=== PATIENT | male | born 1990 | race Caucasian/White ===

== ENCOUNTER 2018-01-02 17:49 | Emergency (ER) | payer BC, MEDICAID, OTHER ==
--- NOTE | 2018-01-02 19:55 | EDM.PDOCBH ---
ED HPI GENERAL MEDICAL PROBLEM - General Chief Complaint: Behavioral/Psych Stated Complaint: EVAL Time Seen by Provider: 01/02/18 18:15 Source of Information: Reports: Patient, Family History Limitations: Reports: Altered Mental Status - History of Present Illness INITIAL COMMENTS - FREE TEXT/NARRATIVE: 27-year-old male with a known history of paranoid schizophrenia, and bipolar disorder has been off his medications for the last 2 weeks at least. His mother called the police to bring him in, she is concerned for his safety as he has become more paranoid, delusional, and not thinking rationally. 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 He also thinks everybody is infected with AIDS and he is being watched. His history is not reliable from the patient , he told me he's been taking his medicines for the last 2 days but told the nurse he was not, and opened up a pill and dumped it out because it was just "dust" in front of his mom yesterday. He has a cat that he is not taking care of. He obviously needs stabilization. He also mentioned 2 days ago that he thought he was , having an afterlife experience or out of body experience. Onset: Unknown/Unsure Severity: Moderate Associated Symptoms: Reports: No Other Symptoms denies Pain Score (Numeric/FACES): 0 - Related Data Allergies Allergy/AdvReac Type Severity Reaction Status Date / Time No Known Allergies Allergy Verified 01/02/18 18:15 Home Meds: Home Meds Sertraline [Zoloft] 100 mg PO DAILY 01/02/18 [History] Ziprasidone HCl 60 mg PO DAILY 01/02/18 [History] risperiDONE 0.5 mg PO ASDIRECTED PRN 01/02/18 [History] Past Medical History Cardiovascular History: Reports: Arrhythmia Musculoskeletal History: Reports: Fracture Psychiatric History: Reports: ADHD, Anxiety, Bipolar, Panic Attack, Psych Hospitalization(s), Psychosis, Other (See Below) Other Psychiatric History: schizoaffective, - Infectious Disease History Infectious Disease History: Reports: Chicken Pox - Past Surgical History Musculoskeletal Surgical History: Reports: Other (See Below) Other Musculoskeletal Surgeries/Procedures:: right wrist Social & Family History - Tobacco Use Smoking Status *Q: Never Smoker - Caffeine Use Caffeine Use: Reports: Soda - Alcohol Use Days Per Week of Alcohol Use: 1 Number of Drinks Per Day: 5 Total Drinks Per Week: 5 Date of Last Drink: 12/19/17 - Recreational Drug Use Recreational Drug Use: No ED ROS GENERAL - Review of Systems Review Of Systems: Unable To Obtain (Patient denies any symptoms, says everything is fine) ED EXAM, BEHAVIORAL HEALTH - Physical Exam Exam: See Below Exam Limited By: No Limitations General Appearance: Alert, No Apparent Distress Eye Exam: Bilateral Eye: Normal Inspection Head: Atraumatic Respiratory/Chest: No Respiratory Distress, Lungs Clear Cardiovascular: Regular Rate, Rhythm Extremities: Normal Inspection (No acute trauma or self injury seen) Neurological: Alert, Oriented x 3 Psychiatric: Normal Affect Skin Exam: Warm, Dry COURSE, BEHAVIORAL HEALTH COMP - Course Vital Signs: Last Vital Signs Temp 98.2 F 01/02/18 22:57 Pulse 80 01/02/18 22:57 Resp 16 01/02/18 22:57 BP 114/74 01/02/18 22:57 Pulse Ox 98 01/02/18 22:57 Orders, Labs, Meds: Active Orders 24 hr Category Date Time Status DRUG SCREEN, URINE [URCHEM] Stat Lab 01/02/18 18:44 Ordered UA W/O MICROSCOPIC [URIN] Stat Lab 01/02/18 18:44 Ordered Laboratory Tests 01/02/18 01/02/18 01/02/18 Range/Units 18:44 18:44 18:54 WBC 4.5 (4.5-11.0) K/uL RBC 4.58 (4.30-5.90) M/uL Hgb 14.8 (12.0-15.0) g/dL Hct 40.6 (40.0-54.0) % MCV 89 (80-98) fL MCH 32 H (27-31) pg MCHC 37 H (32-36) % Plt Count 294 (150-400) K/uL Neut % (Auto) 56 (36-66) % Lymph % (Auto) 30 (24-44) % [place] % (Auto) 10 H (2-6) % Eos % (Auto) 3 (2-4) % Baso % (Auto) 0 (0-1) % Sodium (140-148) mmol/L Potassium (3.6-5.2) mmol/L Chloride (100-108) mmol/L Carbon Dioxide (21-32) mmol/L Anion Gap (5.0-14.0) mmol/L BUN (7-18) mg/dL Creatinine (0.8-1.3) mg/dL Est Cr Clr Drug Dosing mL/min Estimated GFR (MDRD) (>60) Glucose (74-106) mg/dL Calcium (8.5-10.1) mg/dL TSH, Ultra Sensitive (0.358-3.740) uIU/mL Urine Color Yellow Urine Appearance Clear Urine pH 5.0 (4.5-8.0) Ur Specific [place] 1.025 (1.008-1.030) Urine Protein Negative (NEGATIVE) mg/dL Urine Glucose (UA) Normal (NEGATIVE) mg/dL Urine Ketones Negative (NEGATIVE) mg/dL Urine Occult Blood Negative (NEGATIVE) Urine Nitrite Negative (NEGAITVE) Urine Bilirubin Small (NEGATIVE) Urine Urobilinogen 1 (NORMAL) mg/dL Ur Leukocyte Esterase Negative (NEGATIVE) Urine Opiates Screen Negative (NEGATIVE) Ur Oxycodone Screen Negative (NEGATIVE) Urine Methadone Screen Negative (NEGATIVE) Ur Propoxyphene Screen Negative (NEGATIVE) Ur Barbiturates Screen Negative (NEGATIVE) Ur Tricyclics Screen Negative (NEGATIVE) Ur Phencyclidine Scrn Negative (NEGATIVE) Ur Amphetamine Screen Negative (NEGATIVE) U Methamphetamines Scrn Negative (NEGATIVE) Urine MDMA Screen Negative (NEGATIVE) U Benzodiazepines Scrn Negative (NEGATIVE) U Cocaine Metab Screen Negative (NEGATIVE) U Marijuana (THC) Screen Negative (NEGATIVE) Ethyl Alcohol mg/dL 01/02/18 01/02/18 Range/Units 18:54 18:54 WBC (4.5-11.0) K/uL RBC (4.30-5.90) M/uL Hgb (12.0-15.0) g/dL Hct (40.0-54.0) % MCV (80-98) fL MCH (27-31) pg MCHC (32-36) % Plt Count (150-400) K/uL Neut % (Auto) (36-66) % Lymph % (Auto) (24-44) % [place] % (Auto) (2-6) % Eos % (Auto) (2-4) % Baso % (Auto) (0-1) % Sodium 142 (140-148) mmol/L Potassium 3.7 (3.6-5.2) mmol/L Chloride 105 (100-108) mmol/L Carbon Dioxide 24 (21-32) mmol/L Anion Gap 12.7 (5.0-14.0) mmol/L BUN 8 (7-18) mg/dL Creatinine 0.9 (0.8-1.3) mg/dL Est Cr Clr Drug Dosing 133.63 mL/min Estimated GFR (MDRD) > 60 (>60) Glucose 131 H (74-106) mg/dL Calcium 8.3 L (8.5-10.1) mg/dL TSH, Ultra Sensitive 1.618 (0.358-3.740) uIU/mL Urine Color Urine Appearance Urine pH (4.5-8.0) Ur Specific [place] (1.008-1.030) Urine Protein (NEGATIVE) mg/dL Urine Glucose (UA) (NEGATIVE) mg/dL Urine Ketones (NEGATIVE) mg/dL Urine Occult Blood (NEGATIVE) Urine Nitrite (NEGAITVE) Urine Bilirubin (NEGATIVE) Urine Urobilinogen (NORMAL) mg/dL Ur Leukocyte Esterase (NEGATIVE) Urine Opiates Screen (NEGATIVE) Ur Oxycodone Screen (NEGATIVE) Urine Methadone Screen (NEGATIVE) Ur Propoxyphene Screen (NEGATIVE) Ur Barbiturates Screen (NEGATIVE) Ur Tricyclics Screen (NEGATIVE) Ur Phencyclidine Scrn (NEGATIVE) Ur Amphetamine Screen (NEGATIVE) U Methamphetamines Scrn (NEGATIVE) Urine MDMA Screen (NEGATIVE) U Benzodiazepines Scrn (NEGATIVE) U Cocaine Metab Screen (NEGATIVE) U Marijuana (THC) Screen (NEGATIVE) Ethyl Alcohol < 3 mg/dL Re-Assessment/Re-Exam: CBC, CMP, TSH and urine drug screen along with EtOH was obtained. We'll try very hard to get this patient stabilized at an inpatient facility. All of the patient's labs are very reassuring, drug screen was negative, alcohol was 0. [facility] the patient but initially he was unwilling to go. They needed his cooperation in order to be admitted. I explained to the patient that if he did not go to [facility], he would be placed on a 72 hour hold and have to go somewhere, so he agreed to go. Departure - Departure Time of Disposition: 22:59 Disposition: DC/Tfer to Other 70 Condition: Fair Clinical Impression: Bipolar disorder Schizophrenia Qualifiers: Schizophrenia type: paranoid schizophrenia Qualified Code(s): F20.0 - Paranoid schizophrenia - Discharge Information Instructions: Schizophrenia Referrals: PCP,None [Primary Care Provider] - Forms: ED Department Discharge Care Plan Goals: Patient will be transferred to the [facility] unit in [facility] for inpatient assessment and treatment. - My Orders Last 24 Hours: My Active Orders 01/02/18 18:44 DRUG SCREEN, URINE [URCHEM] Stat UA W/O MICROSCOPIC [URIN] Stat - Assessment/Plan Last 24 Hours: My Active Orders 01/02/18 18:44 DRUG SCREEN, URINE [URCHEM] Stat UA W/O MICROSCOPIC [URIN] Stat
[2018-01-02 22:59] VITALS: BP 114/74
== END 2018-01-02 22:59 | disposition other institution (70) ==
LOC: JP.ED 17:49
DX: F31.9 Bipolar disorder, unspecified (principal); F20.0 Paranoid schizophrenia; F90.9 Attention-deficit hyperactivity disorder, unspecified type; Z79.899 Other long term (current) drug therapy
CPT/HCPCS: 36415; 80048; 80305; 81003; 84443; 85025; 99285; G0480

== ENCOUNTER 2018-01-13 13:09 | Emergency (ER) | payer MEDICAID ==
[2018-01-13 13:45] VITALS: BP 135/65
[2018-01-13] MEDS ORDERED: LORazepam 0.5 MG Tab PO ONE ×2 (13:59→16:27)
--- NOTE | 2018-01-13 14:05 | EDM.PDOCBH ---
ED HPI GENERAL MEDICAL PROBLEM - General Chief Complaint: Behavioral/Psych Stated Complaint: EVAL Time Seen by Provider: 01/13/18 14:00 Source of Information: Reports: Patient, Family History Limitations: Reports: No Limitations - History of Present Illness INITIAL COMMENTS - FREE TEXT/NARRATIVE: pt arrived with a feeling of hopelessness. He thinks alot about not waking up. He does not have a suicidal plan. He was seen in [place] yesterday and he had acceptance at [facility] in [place] but he left before a ride could be arranged. He is here today and he realizes he needs to go for in patient. He was recently at [facility] in [place] and he only stayed 2 days and requested to leave. He recently moved into a apartment by himself but has not done well since that time. He emded up quiting his meds. He has been back on his meds since he was in [facility]. Onset: Gradual Duration: Day(s): Associated Symptoms: Reports: Other ( increased depression) denies Pain Score (Numeric/FACES): 0 - Related Data Allergies Allergy/AdvReac Type Severity Reaction Status Date / Time No Known Allergies Allergy Verified 01/02/18 18:15 Home Meds: Home Meds Sertraline [Zoloft] 100 mg PO DAILY 01/02/18 [History] Ziprasidone HCl 60 mg PO DAILY 01/02/18 [History] Past Medical History Cardiovascular History: Reports: Arrhythmia Musculoskeletal History: Reports: Fracture Psychiatric History: Reports: ADHD, Anxiety, Bipolar, Panic Attack, Psych Hospitalization(s), Psychosis, Other (See Below) Other Psychiatric History: schizoaffective, Endocrine/Metabolic History: Reports: Obesity/BMI 30+ - Infectious Disease History Infectious Disease History: Reports: Chicken Pox - Past Surgical History Musculoskeletal Surgical History: Reports: Other (See Below) Other Musculoskeletal Surgeries/Procedures:: right wrist Social & Family History - Tobacco Use Smoking Status *Q: Current Some Day Smoker Years of Tobacco use: 5 Packs/Tins Daily: 0 Used Tobacco, but Quit: No Second Hand Smoke Exposure: Yes - Caffeine Use Caffeine Use: Reports: Soda - Alcohol Use Days Per Week of Alcohol Use: 1 Number of Drinks Per Day: 5 Total Drinks Per Week: 5 - Recreational Drug Use Recreational Drug Use: No ED ROS GENERAL - Review of Systems Review Of Systems: See Below Constitutional: Reports: No Symptoms HEENT: Reports: No Symptoms Respiratory: Reports: No Symptoms Cardiovascular: Reports: No Symptoms Endocrine: Reports: No Symptoms GI/Abdominal: Reports: No Symptoms : Reports: No Symptoms Musculoskeletal: Reports: No Symptoms Neurological: Reports: No Symptoms Psychiatric: Reports: Anxiety, Depression, Other (hopelessness and just not funtioning. ) ED EXAM, BEHAVIORAL HEALTH - Physical Exam Exam: See Below Text/Narrative:: pt is feeling anxious and he knows he needs help. Exam Limited By: No Limitations General Appearance: Alert, No Apparent Distress, Other (pupils are large but do react) Ears: Normal TMs Nose: Normal Inspection Throat/Mouth: Normal Inspection Head: Atraumatic Neck: Normal Inspection Respiratory/Chest: No Respiratory Distress Cardiovascular: Regular Rate, Rhythm GI/Abdominal: Soft, Non-Tender (Male) Exam: Deferred Rectal (Males) Exam: Deferred Back Exam: Normal Inspection Extremities: Normal Inspection COURSE, BEHAVIORAL HEALTH COMP - Course Vital Signs: Last Vital Signs Temp 36.8 C 01/13/18 13:37 Pulse 93 01/13/18 13:37 Resp 18 01/13/18 13:37 BP 135/65 01/13/18 13:37 Pulse Ox 93 L 01/13/18 13:37 Orders, Labs, Meds: Laboratory Tests 01/13/18 01/13/18 01/13/18 Range/Units 13:52 14:05 14:05 Urine Color [place] Urine Appearance Clear Urine pH 6.0 (4.5-8.0) Ur Specific [place] 1.015 (1.008-1.030) Urine Protein Negative (NEGATIVE) mg/dL Urine Glucose (UA) Normal (NEGATIVE) mg/dL Urine Ketones 15 H (NEGATIVE) mg/dL Urine Occult Blood Negative (NEGATIVE) Urine Nitrite Negative (NEGAITVE) Urine Bilirubin Small (NEGATIVE) Urine Urobilinogen 4 (NORMAL) mg/dL Ur Leukocyte Esterase Negative (NEGATIVE) Urine RBC 0-5 (0-5) Urine WBC 0-5 (0-5) Ur Epithelial Cells Not seen Amorphous Sediment Rare Urine Bacteria Not seen Urine Mucus Not seen Urine Opiates Screen Negative (NEGATIVE) Ur Oxycodone Screen Negative (NEGATIVE) Urine Methadone Screen Negative (NEGATIVE) Ur Propoxyphene Screen Negative (NEGATIVE) Ur Barbiturates Screen Negative (NEGATIVE) Ur Tricyclics Screen Negative (NEGATIVE) Ur Phencyclidine Scrn Negative (NEGATIVE) Ur Amphetamine Screen Negative (NEGATIVE) U Methamphetamines Scrn Negative (NEGATIVE) Urine MDMA Screen Negative (NEGATIVE) U Benzodiazepines Scrn Negative (NEGATIVE) U Cocaine Metab Screen Negative (NEGATIVE) U Marijuana (THC) Screen Negative (NEGATIVE) Ethyl Alcohol < 3 mg/dL Medications Discontinued Medications Generic Name Dose Route Start Last Admin Trade Name Freq PRN Reason Stop Dose Admin Lorazepam 0.5 mg 01/13/18 13:59 01/13/18 14:07 Ativan PO 01/13/18 14:00 0.5 mg ONETIME ONE Administration Lorazepam 0.5 mg 01/13/18 16:27 01/13/18 16:44 Ativan PO 01/13/18 16:28 0.5 mg ONETIME ONE Administration Medical Clearance: 01/13/18 15:08 When records cme from [place]. acceptence had not been obtained for the pt. The pt definitely has increased hallucinations and he has a feeling that he does not want to wake up. At this point he is not able to funtion and some inpatient stabilization woulfd be ideal. 01/13/18 15:55 URINE UDS WAS NEG. hIS ETOH WAS NEG. 01/13/18 16:27 pT WAS ACCEPTED AT [facility] Departure - Departure Time of Disposition: 19:05 Disposition: DC/Tfer to Psych Hosp/Unit 65 Condition: Fair Clinical Impression: Depression (emotion), Anxiety - Discharge Information Referrals: PCP,None [Primary Care Provider] - Forms: ED Department Discharge Care Plan Goals: TRANSFER TO [facility]
== END 2018-01-13 19:02 ==
LOC: JP.ED 13:09
DX: F41.8 Other specified anxiety disorders (principal); F32.9 Major depressive disorder, single episode, unspecified; F17.210 Nicotine dependence, cigarettes, uncomplicated; Z79.899 Other long term (current) drug therapy
CPT/HCPCS: 36415; 80305; 81001; 99285; A9270; G0480

== ENCOUNTER 2022-03-09 08:15 | Inpatient (IN) | payer MEDICAID, MEDICARE ==
[2022-03-23] MEDS ORDERED: Scopolamine 1.5 MG Transdermal Patch TOP ONE (05:57)
[2022-03-23] MEDS ORDERED: Acetaminophen 500 MG Tab PO ONE (05:57)
[2022-03-23] MEDS ORDERED: Dextrose 5%-Lactated Ringers 1,000 ML IV SCH (06:00)
[2022-03-23 06:39] LABS: HEMOGLOBIN A1C 6.2 % (4.5-6.2)
[2022-03-23] MEDS ORDERED: Celecoxib 200 MG Cap PO ONE (06:40)
[2022-03-23] MEDS ORDERED: cefOXitin 2 GM Vial ONE (06:50)
[2022-03-23 06:55] LABS: ESTIMATED GFR 104 mL/min (>60)
[2022-03-23] MEDS ORDERED: fentaNYL 250 MCG/5 ML SDV ONE ×2 (06:57→08:29)
[2022-03-23] MEDS ORDERED: Succinylcholine 200 MG/10 ML MDV ONE (06:58)
[2022-03-23] MEDS ORDERED: Neostigmine Methylsulfate 1 MG/ML 5 ML Syringe ONE (06:58)
[2022-03-23] MEDS ORDERED: Rocuronium 50 MG/5 ML Vial ONE ×2 (06:58→07:50)
[2022-03-23] MEDS ORDERED: Dexamethasone 4 MG/ML SDV ONE (06:58)
[2022-03-23] MEDS ORDERED: Propofol 200 MG/20 ML SDV ONE (06:58)
[2022-03-23] MEDS ORDERED: Glycopyrrolate 0.2 MG/ML 5 ML MDV ONE (06:58)
[2022-03-23] MEDS ORDERED: Ondansetron 4 MG/2 ML SDV ONE (06:58)
[2022-03-23] MEDS ORDERED: cefOXitin 2 GM in Sodium Chloride 0.9% 100 ML IV ONE (07:00)
[2022-03-23] MEDS ORDERED: Lactated Ringers 1,000 ML ONE (07:02)
[2022-03-23] MEDS ORDERED: cefOXitin 2 GM in Sodium Chloride 0.9% 50 ML IV ONE (07:30)
[2022-03-23] MEDS ORDERED: Ketamine 22 MG in Sodium Chloride 0.9% 19.78 ML IV SCH (07:30)
[2022-03-23] MEDS ORDERED: Ketamine 500 MG/5 ML MDV IV SCH (07:30)
[2022-03-23] MEDS ORDERED: Pantoprazole 40 MG Vial IVPUSH SCH ×3 (10:45→14:00)
[2022-03-23] MEDS ORDERED: traMADol 50 MG Tab PO PRN (11:00)
[2022-03-23] MEDS ORDERED: Labetalol 20 MG/4 ML Syringe IVPUSH PRN (11:00)
[2022-03-23] MEDS ORDERED: Ondansetron 4 MG/2 ML SDV IVPUSH PRN (11:00)
[2022-03-23] MEDS ORDERED: diphenhydrAMINE 50 MG/ML SDV IVPUSH PRN (11:00)
[2022-03-23] MEDS ORDERED: HYDROmorphone 0.5 MG/0.5 ML Syringe IVPUSH PRN (11:00)
[2022-03-23] MEDS ORDERED: HYDROmorphone 1 MG/ML Syringe IV PRN (11:00)
[2022-03-23] MEDS ORDERED: Metoclopramide 10 MG/2 ML SDV IVPUSH PRN (11:00)
[2022-03-23] MEDS ORDERED: Acetaminophen 500 MG Tab PO PRN (11:00)
[2022-03-23] MEDS ORDERED: hydrOXYzine HCL 100 MG/2 ML SDV IM PRN (11:00)
[2022-03-23] MEDS: Cyclobenzaprine 10 MG Tab PO PRN ×2 (11:10→20:57)
[2022-03-23] MEDS: cefOXitin 2 GM in Sodium Chloride 0.9% 50 ML IV SCH ×2 (13:18→19:58)
[2022-03-23] MEDS: Dextrose 5%-Lactated Ringers 1,000 ML IV SCH ×2 (13:18→23:04)
[2022-03-23] MEDS: Acetaminophen 500 MG Tab PO SCH ×2 (13:22→21:00)
[2022-03-23] MEDS ORDERED: MVI, Adult with Vitamin K 10 ML, Thiamine 200 MG, Zinc/Copper/Manganese/Selenium 1 ML i... IV SCH ×4 (16:00)
[2022-03-23] MEDS: Heparin Sodium 5,000 Units/ML Vial SUBCUT SCH (16:39)
[2022-03-23] MEDS: oxyCODONE 5 MG Tab PO PRN (16:43)
[2022-03-23] MEDS: Prazosin 1 MG Cap PO SCH (20:00)
[2022-03-23] MEDS: SUVOREXANT 10 MG PO SCH (20:00)
[2022-03-24] MEDS: oxyCODONE 5 MG Tab PO PRN ×3 (00:28→21:00)
[2022-03-24] MEDS: Heparin Sodium 5,000 Units/ML Vial SUBCUT SCH ×4 (00:28→23:23)
[2022-03-24] MEDS ORDERED: Iopamidol 612 MG/ML 50 ML SDV PO STA (01:59)
[2022-03-24] MEDS: cefOXitin 2 GM in Sodium Chloride 0.9% 50 ML IV SCH ×3 (02:38→13:56)
[2022-03-24] MEDS: Dextrose 5%-Lactated Ringers 1,000 ML IV SCH ×2 (05:54→12:56)
[2022-03-24] MEDS: Acetaminophen 500 MG Tab PO SCH ×3 (06:29→21:01)
[2022-03-24] MEDS ORDERED: Celecoxib 200 MG Cap PO ONE ×2 (06:30)
[2022-03-24] MEDS: ClonazePAM 1 MG Tab PO SCH (09:12)
[2022-03-24] MEDS: Celecoxib 200 MG Cap PO SCH ×2 (09:12→20:46)
[2022-03-24] MEDS: SCOPOLAMINE PATCH CHECK TOP SCH (09:13)
[2022-03-24] MEDS ORDERED: MVI, Adult with Vitamin K 10 ML, Thiamine 200 MG, Zinc/Copper/Manganese/Selenium 1 ML i... IV SCH ×4 (16:00)
[2022-03-24] MEDS ORDERED: Pantoprazole 40 MG Delayed-Release Granules 1 Packet PO SCH (16:30)
[2022-03-24] MEDS: Prazosin 1 MG Cap PO SCH (20:46)
[2022-03-24] MEDS: SUVOREXANT 10 MG PO SCH (20:49)
[2022-03-25] MEDS: Dextrose 5%-Lactated Ringers 1,000 ML IV SCH (01:59)
[2022-03-25] MEDS: Acetaminophen 500 MG Tab PO SCH (05:55)
[2022-03-25 06:56] VITALS: BP 136/90; PULSE 99
[2022-03-25] MEDS: Heparin Sodium 5,000 Units/ML Vial SUBCUT SCH (07:01)
[2022-03-25] MEDS: oxyCODONE 5 MG Tab PO PRN (07:01)
[2022-03-25] MEDS ORDERED: Cyanocobalamin (Vitamin B12) 1,000 MCG/ML SDV IM ONE (09:00)
[2022-03-25] MEDS: ClonazePAM 1 MG Tab PO SCH (09:01)
[2022-03-25] MEDS: Celecoxib 200 MG Cap PO SCH (09:01)
[2022-03-25] MEDS: SCOPOLAMINE PATCH CHECK TOP SCH (09:02)
== END 2022-03-25 10:13 | disposition home or self-care (01) | DRG 621 ==
LOC: EDSTATUS 08:15 → JP.SDS 03-23 05:29 → JP.MS 03-23 10:00
PROVIDERS: ADMIT Surgery; ATTEND Surgery
PROC: 0D164ZA Bypass Stomach to Jejunum, Percutaneous Endoscopic Approach (ICD-10-PCS; principal; 2022-03-23)
PROC: 0FB24ZX Excision of Left Lobe Liver, Percutaneous Endoscopic Approach, Diagnostic (ICD-10-PCS; 2022-03-23)
PROC: 0BQT4ZZ Repair Diaphragm, Percutaneous Endoscopic Approach (ICD-10-PCS; 2022-03-23)
PROC: 0DB84ZZ Excision of Small Intestine, Percutaneous Endoscopic Approach (ICD-10-PCS; 2022-03-23)
DX: E66.01 Morbid (severe) obesity due to excess calories (principal); F98.8 Other specified behavioral and emotional disorders with onset usually occurring in childhood and adolescence; F32.9 Major depressive disorder, single episode, unspecified; G47.33 Obstructive sleep apnea (adult) (pediatric); Z68.44 Body mass index [BMI] 60.0-69.9, adult
CPT/HCPCS: 36415; 74240; 74240-26; 80053; 83036; 83735; 83880; 84100; 85027; 86850; 86900; 86901; 88307; 88313; A9270-GY; C9113; J0171; J0330; J0694; J1100; J1644; J2405; J2704; J2710; J2795; J3010; J3410; J3411; J3420; J3490; J7120; J7121; Q9967

== ENCOUNTER 2022-04-23 05:23 | Day surgery (SDC) | payer MEDICARE ==
[2022-04-23] MEDS ORDERED: Acetaminophen 500 MG Tab PO ONE (05:30)
[2022-04-23] MEDS ORDERED: Dextrose 5%-Lactated Ringers 1,000 ML IV SCH (06:00)
[2022-04-23] MEDS ORDERED: Meropenem 500 MG in Sodium Chloride 0.9% 50 ML IV ONE ×2 (06:30→07:30)
[2022-04-23] MEDS ORDERED: Bupivacaine 0.5%/EPINEPHrine 1:200,000 50 ML MDV ONE (06:43)
[2022-04-23] MEDS ORDERED: fentaNYL 250 MCG/5 ML SDV ONE (07:18)
[2022-04-23] MEDS ORDERED: Neostigmine Methylsulfate 1 MG/ML 5 ML Syringe ONE (07:19)
[2022-04-23] MEDS ORDERED: Propofol 200 MG/20 ML SDV ONE (07:19)
[2022-04-23] MEDS ORDERED: Rocuronium 50 MG/5 ML Vial ONE (07:19)
[2022-04-23] MEDS ORDERED: Glycopyrrolate 0.2 MG/ML 5 ML MDV ONE (07:19)
[2022-04-23] MEDS ORDERED: Succinylcholine 200 MG/10 ML MDV ONE (07:19)
[2022-04-23] MEDS ORDERED: Ondansetron 4 MG/2 ML SDV ONE (07:19)
[2022-04-23] MEDS ORDERED: Dexamethasone 4 MG/ML SDV ONE (07:19)
[2022-04-23] MEDS ORDERED: Lactated Ringers 1,000 ML IV ONE (07:30)
[2022-04-23] MEDS ORDERED: Cyanocobalamin (Vitamin B12) 1,000 MCG/ML SDV IM ONE (07:30)
[2022-04-23] MEDS ORDERED: Hydrogen Peroxide 3% Top Soln 240 ML Bottle ONE (07:38)
[2022-04-23] MEDS ORDERED: MVI, Adult with Vitamin K 10 ML, Thiamine 200 MG, Zinc/Copper/Manganese/Selenium 1 ML i... IV ONE ×4 (08:30)
[2022-04-23] MEDS ORDERED: Paliperidone 3 MG Tab.ER PO ONE (09:00)
[2022-04-23] MEDS ORDERED: oxyCODONE 5 MG Tab PO PRN (09:21)
[2022-04-23 10:19] VITALS: PULSE 85
[2022-04-23 10:51] VITALS: BP 108/71
== END 2022-04-23 11:00 | disposition home or self-care (01) ==
LOC: JP.SDS 05:23
PROVIDERS: ATTEND Surgery
DX: K60.3 Anal fistula (principal); F33.42 Major depressive disorder, recurrent, in full remission; F90.2 Attention-deficit hyperactivity disorder, combined type; F20.0 Paranoid schizophrenia; E66.01 Morbid (severe) obesity due to excess calories; G47.33 Obstructive sleep apnea (adult) (pediatric); Z68.42 Body mass index [BMI] 45.0-49.9, adult; Z79.83 Long term (current) use of bisphosphonates; Z79.899 Other long term (current) drug therapy; Z91.048 Other nonmedicinal substance allergy status
CPT/HCPCS: 46280; A9270; J0330; J1100; J2185; J2405; J2704; J2710; J3010; J3411; J3420; J3490; J7120

== ENCOUNTER 2024-08-09 17:42 | Emergency (ER) | payer MEDICARE ==
[2024-08-09 18:24] LABS: BASOPHILS ABSOLUTE AUTO 0.03 K/uL (0.00-0.10); BASOPHILS PERCENT AUTO 0.5 % (0.1-1.3); EOSINOPHILS ABSOLUTE AUTO 0.08 K/uL (0.00-0.40); EOSINOPHILS PERCENT AUTO 1.5 % (0.0-5.4); HEMATOCRIT 45.6 % (38.4-49.7); HEMOGLOBIN 16.1 g/dL (12.9-16.9); IMMATURE GRAN ABSOLUTE AUTO 0.02 K/uL (0.00-0.23); IMMATURE GRAN PERCENT AUTO 0.4 % (0.0-0.7); LYMPHOCYTES ABSOLUTE AUTO 1.29 K/uL (0.8-3.3); LYMPHOCYTES PERCENT AUTO 23.4 % (11.4-47.7); MEAN CORPUSCULAR HEMOGLOBIN 32.7 pg (31.6-35.5); MEAN CORPUSCULAR HGB CONC 35.3 g/dL (31.6-35.5); MEAN CORPUSCULAR VOLUME 92.7 fL (81.4-99.0); MONOCYTES ABSOLUTE AUTO 0.53 K/uL (0.20-0.90); MONOCYTES PERCENT AUTO 9.6 % (3.3-12.6); NEUTROPHILS ABSOLUTE AUTO 3.56 K/uL (1.0-7.6); NEUTROPHILS PERCENT AUTO 64.6 % (40.0-78.1); PLATELET COUNT,PLT 248 K/uL (130-375); RED BLOOD CELL COUNT 4.92 M/uL (4.14-5.76); WHITE BLOOD CELL COUNT,WBC 5.5 K/uL (3.2-11.0)
[2024-08-09 18:29] LABS: APPEARANCE,URINE CLEAR (CLEAR); BILIRUBIN,URINE MODERATE (NEGATIVE); COLOR,URINE YELLOW (YELLOW); GLUCOSE,URINE NEGATIVE (NEGATIVE); KETONES,URINE 40 mg/dL (NEGATIVE); LEUKOCYTE ESTERASE,URINE NEGATIVE (NEGATIVE); NITRITE,URINE NEGATIVE (NEGATIVE); OCCULT BLOOD,URINE NEGATIVE (NEGATIVE); PROTEIN,URINE TRACE mg/dL (NEGATIVE)
[2024-08-09 18:35] LABS: AMORPHOUS SEDIMENT,URINE NOT SEEN; AMPHETAMINES SCREEN, URINE NEGATIVE (NEGATIVE); BACTERIA,URINE FEW; BARBITURATE SCREEN,URINE NEGATIVE (NEGATIVE); BENZODIAZEPINES SCREEN,URINE NEGATIVE (NEGATIVE); EPITHELIAL CELLS,URINE NOT SEEN; METHADONE SCREEN, URINE NEGATIVE (NEGATIVE); METHAMPHETAMINES SCREEN, URINE NEGATIVE (NEGATIVE); MUCUS,URINE NOT SEEN; OXYCODONE SCREEN,URINE NEGATIVE (NEGATIVE); PROPOXYPHENE SCREEN,URINE NEGATIVE (NEGATIVE); RBC,URINE 0-5 (0-5); THC SCREEN,URINE 50 NG/ML NEGATIVE (NEGATIVE); WBC,URINE 0-5 (0-5)
[2024-08-09] MEDS ORDERED: Ondansetron 4 MG/2 ML SDV IVPUSH ONE (18:35)
[2024-08-09] MEDS: Ondansetron 4 MG Tab.DIS PO ONE (18:42)
[2024-08-09] MEDS: Acetaminophen 500 MG Tab PO ONE (18:43)
[2024-08-09 18:54] LABS: A/G RATIO 1.1 (1.2-2.2); ALANINE AMINOTRANSFERASE,ALT 34 U/L (12-78); ALBUMIN 4.1 g/dL (3.4-5.0); ALKALINE PHOSPHATASE 149 U/L (46-116); ASPARTATE AMNIOTRANSFERASE,AST 40 U/L (15-37); BILIRUBIN TOTAL 0.8 mg/dL (0.2-1.0); BLOOD UREA NITROGEN,BUN 9 mg/dL (7-18); CARBON DIOXIDE,CO2 30 mmol/L (21-32); CHLORIDE,CL 100 mmol/L (100-108); ESTIMATED GFR 103 mL/min (>60); GLUCOSE RANDOM 108 mg/dL (74-106); PROTEIN TOTAL,TP 7.8 g/dL (6.4-8.2); SODIUM,NA 139 mmol/L (140-148)
== END 2024-08-09 21:30 ==
LOC: JP.ED 17:42
DX: F10.10 Alcohol abuse, uncomplicated (principal); F19.10 Other psychoactive substance abuse, uncomplicated; E66.9 Obesity, unspecified; Z79.899 Other long term (current) drug therapy; Z91.048 Other nonmedicinal substance allergy status; Z68.38 Body mass index [BMI] 38.0-38.9, adult
CPT/HCPCS: 36415; 80053; 80305-QW; 80307; 81001; 83690; 85025; 99284; 99285; A9270-GY; Q0162